=== PATIENT | male | born 1990 | race Caucasian/White ===

== ENCOUNTER 2022-03-10 10:10 | Day surgery (SDC) | payer OTHER, SELFPAY ==
[2022-03-10 11:03] LABS: COVID19 -Nasal RAPID Negative (Negative)
[2022-03-10 11:38] VITALS: BP 124/78; PULSE 68; RESP 18; TEMP 36.5; O2SAT 99
[2022-03-10] MEDS: SODIUM CHLORIDE 0.9% 1,000 ML 84 ML IV (12:01)
--- NOTE | 2022-03-10 12:09 | PM.HP.1 ---
History of Present Illness History of Present Illness Date Patient Seen: 03/10/22 Time Patient Seen: 12:09 Chief complaint: Colonoscopy Narrative: I reviewed the recent office note from February 11. No significant changes with the exception of overall he is doing better. No hemorrhoidal complaints at present. Patient History Medical History Acute hemorrhoid Family & Social History Social History: household members spouse Tobacco & Substance use: Tobacco type cigarettes Smoking Status Former smoker alcohol intake frequency holiday/special occasion Substance Use Type does not use Meds Home Medications and Allergies Allergies Allergy/AdvReac Type Severity Reaction Status Date / Time No Known Drug Allergies Allergy Verified 03/10/22 11:35 Review of Systems Review of Systems ROS: Yes All systems reviewed with the patient and are negative except as otherwise documented Exam Vital Signs (past 8 hours): - 03/10/22 11:38 Temperature 97.7 F Pulse Rate 68 Respiratory Rate 18 Blood Pressure 124/78 Pulse Oximetry 99 Oxygen Delivery Method Room Air Oxygen Delivery Method Room Air Const General: cooperative HENMT Head: normal to inspection Eyes General: appearance normal, both eyes and all related structures Neck Neck: normal visual inspection Chest Chest: normal inspection of the chest Resp Effort & Inspection: normal respiratory effort Cardio Rate: regular rate GI Inspection: normal to inspection Skin General: no rashes or lesions noted Neuro General: patient alert and patient awake Extrem General: normal to inspection and no pedal edema Psych Appearance: grossly normal Objective Labs Labs: Laboratory Results - last 24 hr 03/10/22 10:30 SARS-CoV-2 (PCR) Negative Assessment & Plan Assessment & Plan narrative: 31-year-old male with struggles with constipation cycling with some diarrhea at times. He is spontaneously improved. He has a history of some hemorrhoidal engorgement and irritation. There is a family history of colon polyps in his mom. Colonoscopy is pursued today. Time Spent With Patient Critical Care time: I spent a total of [] minutes of critical care time on this patient's care today; this time is exclusive of procedural time.
--- NOTE | 2022-03-10 12:10 | PM.PREOP ---
Pre-operative Note COVID-19 COVID-19 status: Negative Result date/Date tested (Pos, Neg/Pending): 03/10/22 Criteria for continued procedure: Possibility delay results in more complex future surgery or treatment Interval Note History & Physical reviewed/Exam performed by Physician: Yes Changes to H&P: Yes ASA Class (for procedural sedation): I
--- NOTE | 2022-03-10 13:26 | P.OP.COLON_ITS ---
Operative Date/Time/Diagnoses Date of procedure: 03/10/22 Time of procedure: 13:26 Pre-op diagnosis: Altered bowel habit with a predominance of constipation, hemorrhoids, family history of colon polyps. Post-op diagnosis: same Procedure & Clinicians Study performed: Colonoscopy Same procedure as scheduled: Yes Indications: Altered bowel habit with a predominance of constipation, hemorrhoids, family history of colon polyps. Surgeon: Manish Cutler Procedure Notes SCOAP/Timeout: Done Procedure in detail: After the risks and benefits were explained, written and verbal informed consent was obtained. The patient was brought into the procedure room and placed into the left lateral decubitus position. Please see nurse registered pharmacy technician notes for sedation details. Digital rectal examination was accomplished. The scope was introduced into the patient and advanced under direct visualization to the cecum as identified by the appendiceal orifice and ileocecal valve. The scope was slowly withdrawn to carefully examine the mucosa for any defects or lesions. Comprehensive imaging was accomplished throughout the rectum including the dentate line. The colon was decompressed, the scope was then removed from the patient who tolerated the procedure well. Bowel prep adequate Adult colonoscope Scope withdrawal time: 7 minutes Sedation minutes: 14 Specimen(s): none sent Complications: none Impression: Patient had a mildly tortuous sigmoid colon. There were some scattered scant early diverticula noted. No significant polyps mass lesions or inflammatory features identified throughout. The terminal ileum was visualized and appeared normal. Grade 1 internal hemorrhoids were noted with a soft small anal skin tag noted externally. Endoscopic diagnosis 1. Mild diverticulosis 2. Grade 1 hemorrhoids Post-procedure Plan for aftercare: 1. Fiber based bowel regimen with intermittent MiraLax as needed. 2. Warm Epsom salt baths to reduce hemorrhoidal engorgement as needed. 3. Follow up GI clinic as previously directed by Dr. Rivera. Disposition: PACU
[2022-03-10 13:29] VITALS: BP 106/46; PULSE 64; RESP 19; TEMP 36.7; O2SAT 99
[2022-03-10 13:34] VITALS: BP 101/64; PULSE 66; RESP 19; O2SAT 99
[2022-03-10 13:45] VITALS: BP 98/73; PULSE 66; RESP 14; TEMP 36.8; O2SAT 98
[2022-03-10 13:50] VITALS: BP 119/79; PULSE 63; RESP 16; TEMP 36.4; O2SAT 100
== END 2022-03-10 14:02 | disposition home or self-care (01) ==
PROVIDERS: PCP Family Medicine; Referring Provider Internal Medicine Gastroenterology; Visit Provider Internal Medicine Gastroenterology
PROC: 0DJD8ZZ Inspection of Lower Intestinal Tract, Via Natural or Artificial Opening Endoscopic (ICD-10-PCS; CPT 45378; principal; 2022-03-10 13:30)
DX: K59.00 Constipation, unspecified (principal); Z83.71 Family history of colonic polyps; Z20.822 Contact with and (suspected) exposure to COVID-19; K57.30 Diverticulosis of large intestine without perforation or abscess without bleeding; K64.0 First degree hemorrhoids
CPT/HCPCS: 45378; 87635; C9803; J2704